=== PATIENT | female | born 1975 ===

== ENCOUNTER 2023-05-02 21:22 | Outpatient (REF) | payer MEDICARE, SELFPAY ==
[2023-05-02 22:16] LABS: COVID-19 PCR Negative (Negative); Influenza A PCR Negative (Negative); Influenza B PCR Negative (Negative); RSV PCR Negative (Negative)
[2023-05-02 22:45] LABS: Source Nasopharynx
== END 2023-05-02 21:23 | disposition home or self-care (01) ==
LOC: LBN 21:22
PROVIDERS: Visit Provider Physician Assistant Medical
DX: R05.8 Other specified cough (principal); Z20.822 Contact with and (suspected) exposure to COVID-19
CPT/HCPCS: 87637